=== PATIENT | female | born 1950 | race Caucasian/White ===

== ENCOUNTER 2020-04-13 10:48 | Outpatient (REF) | payer MEDICARE, SELFPAY ==
[2020-04-13 14:40] LABS: Estimated Average Glucose 123 mg/dL; Hemoglobin A1c % 5.9 %
[2020-04-13 14:43] LABS: Vitamin D 25-OH Total 35.6 ng/mL (>30)
[2020-04-13 14:44] LABS: Alanine Aminotransferase 19 U/L (0-31); Albumin Level 4.3 g/dL (3.5-5.0); Alkaline Phosphatase 63 U/L (39-117); Anion Gap 13 (12-20); Aspartate Amino Transferase 20 U/L (5-31); Bilirubin Total 0.6 mg/dL (0.0-1.0); Blood Urea Nitrogen 13 mg/dL (9-16); Calcium 8.8 mg/dL (8.4-10.2); Carbon Dioxide 31 mmol/L (22-29); Chloride 104 mmol/L (96-108); Cholesterol 141 mg/dL; Estimated Glomerular Filt Rate > 60; Glucose Fasting 107 mg/dL (60-99); HDL Cholesterol 51 mg/dL; LDL Cholesterol Calculated 69 mg/dl; Potassium 4.1 mmol/l (3.3-5.1); Sodium 144 mmol/L (135-145); Triglycerides 106 mg/dL
== END 2020-04-13 10:49 | disposition home or self-care (01) ==
LOC: HO.HMGCLDS 10:48
PROVIDERS: PCP Internal Medicine; Visit Provider Internal Medicine
DX: E11.9 Type 2 diabetes mellitus without complications (principal); E78.5 Hyperlipidemia, unspecified; I10 Essential (primary) hypertension; N39.46 Mixed incontinence; F41.8 Other specified anxiety disorders; Z78.0 Asymptomatic menopausal state
CPT/HCPCS: 36415; 80053; 80061; 82306; 83036

== ENCOUNTER 2020-08-04 10:25 | Outpatient (REF) | payer MEDICARE, SELFPAY ==
[2020-08-04 12:06] LABS: Estimated Average Glucose 123 mg/dL; Hemoglobin A1c % 5.9 %
[2020-08-04 12:46] LABS: Carbon Dioxide 31 mmol/L (22-29); Chloride 105 mmol/L (96-108); Potassium 4.5 mmol/L (3.3-5.1); Sodium 144 mmol/L (135-145)
[2020-08-04 12:47] LABS: Alanine Aminotransferase 16 U/L (0-31); Anion Gap 13 (12-20); Aspartate Amino Transferase 16 U/L (5-31); Blood Urea Nitrogen 15 mg/dL (9-16); Calcium 9.3 mg/dL (8.4-10.2); Cholesterol 133 mg/dL; Estimated Glomerular Filt Rate > 60; Glucose Fasting 109 mg/dL (60-99); HDL Cholesterol 45 mg/dL; LDL Cholesterol Calculated 63 mg/dl; Triglycerides 129 mg/dL
[2020-08-04 13:12] LABS: Vitamin D 25-OH Total 40.6 ng/mL (>30)
== END 2020-08-04 10:26 | disposition home or self-care (01) ==
LOC: HO.HMGCLDS 10:25
PROVIDERS: PCP Internal Medicine; Visit Provider Internal Medicine
DX: I10 Essential (primary) hypertension (principal); E78.5 Hyperlipidemia, unspecified; E11.9 Type 2 diabetes mellitus without complications
CPT/HCPCS: 36415; 80048; 80061; 82306; 83036; 84450; 84460

== ENCOUNTER 2020-10-22 14:28 | Outpatient (REF) | payer MEDICARE, SELFPAY ==
--- NOTE | ~2020-10-22 | MM_ITS ---
EXAMINATION: MM SCREENING DIGITAL BREAST TOMOSYNTHESIS, BILATERAL CLINICAL INFORMATION: Screening. Asymptomatic. The lifetime risk of breast cancer based on the Tyrer-Cuzick Model is 6%. COMPARISON: Mammography: 04/09/2019, 04/05/2018, 03/02/2017 TECHNIQUE: Digital breast tomosynthesis is performed in both the craniocaudal and mediolateral oblique views along with computer-aided detection (CAD). Synthesized 2D images are generated from the tomosynthesis. Additional exaggerated left CC view is provided. FINDINGS: There are scattered areas of fibroglandular density (ACR BI-RADS breast composition Category b). Breast tissue composition borders on heterogeneously dense in the outer quadrants. The left breast parenchymal pattern is similar to prior studies and there is no interval mass or developing density or architectural abnormality. There are scattered bilateral round and rim calcifications again seen. The skin contours are smooth. The right MLO view has asymmetric density mid depth along posterior nipple line without correlate on CC view. Suspect summation artifact or incompletely compressed glandular tissue. Patient will be recalled for additional imaging. MM/MM tomosynthesis screening BI IMPRESSION: 1. Right: Asymmetric density mid breast on MLO view near posterior nipple line. Suspect summation artifact. 2. Left: No mammographic evidence of malignancy. ASSESSMENT: BI-RADS 0: Incomplete - Need Additional Imaging Evaluation RECOMMENDATION: 1. Additional views of the right breast (3-D spot MLO, 3-D ML). 2. Targeted ultrasound if warranted after review of the additional views. 3. Radiology department staff will contact the patient for additional imaging. This patient's information was entered into a reminder system with a target due date for their next mammogram.
== END 2020-10-22 14:29 | disposition home or self-care (01) ==
LOC: HO.MAMMO 14:28
PROVIDERS: Visit Provider Internal Medicine
DX: Z12.31 Encounter for screening mammogram for malignant neoplasm of breast (principal)
CPT/HCPCS: 77063; 77067

== ENCOUNTER 2020-11-01 12:29 | Outpatient (REF) | payer MEDICARE, SELFPAY ==
--- NOTE | ~2020-11-01 | MM_ITS ---
EXAMINATION: MM DIAGNOSTIC DIGITAL BREAST TOMOSYNTHESIS, RIGHT CLINICAL INFORMATION: Recall from screening for questionable asymmetric density mid depth right MLO view near posterior nipple line without CT correlate. Summation artifact or incompletely compressed glandular tissue suspected. COMPARISON: Mammography: 10/22/2020, 04/09/2019, 04/05/2018 TECHNIQUE: Digital breast tomosynthesis is performed. 2D images are generated from the tomosynthesis. The following views are obtained: 3-D ML, 3-D spot MLO x2. FINDINGS: There are scattered areas of fibroglandular density (ACR BI-RADS breast composition Category b). The additional views show scattered fibroglandular densities similar to prior studies. There is no interval asymmetric density, developing density, mass, or architectural abnormality. Results are discussed with the patient at time of visit. MM/MM tomosynthesis added views R IMPRESSION: Additional views show no significant changes in the fibroglandular pattern compared with prior exams. ASSESSMENT: BI-RADS 2: Benign RECOMMENDATION: Routine annual mammography screening. This patient's information was entered into a reminder system with a target due date for their next mammogram.
== END 2020-11-01 12:30 | disposition home or self-care (01) ==
LOC: HO.MAMMO 12:29
PROVIDERS: Visit Provider Internal Medicine
DX: R92.2 Inconclusive mammogram (principal)
CPT/HCPCS: 77061; 77065

== ENCOUNTER 2021-12-07 13:18 | Outpatient (REF) | payer MEDICARE, SELFPAY ==
--- NOTE | ~2021-12-07 | MM_ITS ---
EXAMINATION: MM SCREENING DIGITAL BREAST TOMOSYNTHESIS, BILATERAL CLINICAL INFORMATION: Screening. Asymptomatic. The lifetime risk of breast cancer based on the Tyrer-Cuzick Model is 2%. COMPARISON: Mammography: 11/01/2020, 10/22/2020, 04/09/2019, 04/05/2018 TECHNIQUE: Digital breast tomosynthesis is performed in both the craniocaudal and mediolateral oblique views along with computer-aided detection (CAD). Synthesized 2D images are generated from the tomosynthesis. FINDINGS: There are scattered areas of fibroglandular density (ACR BI-RADS breast composition Category b). There are no significant masses, abnormal calcifications, or other abnormalities. Parenchymal pattern is similar to prior studies. There is no developing density or architectural abnormality. The axilla and skin contours are unremarkable. No significant changes. MM/MM tomosynthesis screening BI IMPRESSION: No mammographic evidence of malignancy. ASSESSMENT: BI-RADS 1: Negative RECOMMENDATION: Routine annual mammography screening. This patient's information was entered into a reminder system with a target due date for their next mammogram.
== END 2021-12-07 13:19 | disposition home or self-care (01) ==
LOC: HO.MAMMO 13:18
PROVIDERS: PCP Internal Medicine; Visit Provider Internal Medicine
DX: Z12.31 Encounter for screening mammogram for malignant neoplasm of breast (principal)
CPT/HCPCS: 77063; 77067

== ENCOUNTER 2022-01-11 11:13 | Outpatient (REF) | payer MEDICARE, SELFPAY ==
[2022-01-11 14:22] LABS: Alanine Aminotransferase 15 U/L (0-31); Anion Gap 14 (12-20); Aspartate Amino Transferase 22 U/L (5-31); Blood Urea Nitrogen 16 mg/dL (9-16); Carbon Dioxide 28 mmol/L (22-29); Chloride 106 mmol/L (96-108); Cholesterol 130 mg/dL; Estimated Glomerular Filt Rate > 60; Glucose Fasting 115 mg/dL (60-99); HDL Cholesterol 49 mg/dL; LDL Cholesterol Calculated 63 mg/dl; Potassium 4.1 mmol/L (3.3-5.1); Sodium 144 mmol/L (135-145); Triglycerides 90 mg/dL
[2022-01-11 14:45] LABS: Vitamin D 25-OH Total 49.6 ng/mL (>30)
== END 2022-01-11 11:14 | disposition home or self-care (01) ==
LOC: HO.HMGCLDS 11:13
PROVIDERS: PCP Internal Medicine; Visit Provider Internal Medicine
DX: E78.5 Hyperlipidemia, unspecified (principal); I10 Essential (primary) hypertension; E11.9 Type 2 diabetes mellitus without complications
CPT/HCPCS: 36415; 80048; 80061; 82306; 84450; 84460

== ENCOUNTER 2022-07-06 10:39 | Outpatient (REF) | payer MEDICARE, SELFPAY ==
[2022-07-06 14:48] LABS: Estimated Average Glucose 128 mg/dL; Hemoglobin A1c % 6.1 %
[2022-07-06 14:51] LABS: Alanine Aminotransferase 16 U/L (0-31); Anion Gap 15 (12-20); Aspartate Amino Transferase 19 U/L (5-31); Blood Urea Nitrogen 16 mg/dL (9-16); Calcium 9.1 mg/dL (8.4-10.2); Carbon Dioxide 27 mmol/L (22-29); Chloride 105 mmol/L (96-108); Cholesterol 129 mg/dL; Estimated Glomerular Filt Rate > 60; Glucose Fasting 130 mg/dL (60-99); HDL Cholesterol 42 mg/dL; LDL Cholesterol Calculated 67 mg/dl; Potassium 4.2 mmol/L (3.3-5.1); Sodium 143 mmol/L (135-145); Triglycerides 100 mg/dL
[2022-07-06 14:55] LABS: Vitamin D 25-OH Total 53.9 ng/mL (>30)
[2022-07-06 15:15] LABS: Creatinine Urine 69.38 mg/dL
== END 2022-07-06 10:40 | disposition home or self-care (01) ==
LOC: HO.HMGCLDS 10:39
PROVIDERS: PCP Internal Medicine; Visit Provider Internal Medicine
DX: E11.9 Type 2 diabetes mellitus without complications (principal); I10 Essential (primary) hypertension; M85.80 Other specified disorders of bone density and structure, unspecified site; E78.5 Hyperlipidemia, unspecified
CPT/HCPCS: 36415; 80048; 80061; 82043; 82306; 83036; 84450; 84460

== ENCOUNTER 2022-12-30 10:26 | Outpatient (REF) | payer MEDICARE, SELFPAY ==
--- NOTE | ~2022-12-30 | MM_ITS ---
EXAMINATION: MM SCREENING DIGITAL BREAST TOMOSYNTHESIS, BILATERAL CLINICAL INFORMATION: Screening. Asymptomatic. COMPARISON: Mammography: This study is compared with prior exams dating back to 2017. TECHNIQUE: Digital breast tomosynthesis is performed in both the craniocaudal and mediolateral oblique views along with computer-aided detection (CAD). Synthesized 2D images are generated from the tomosynthesis. FINDINGS: There are scattered areas of fibroglandular density (ACR BI-RADS breast composition Category b). There are no significant masses, abnormal calcifications, or other abnormalities. Bilateral benign calcifications are present. MM/MM tomosynthesis screening BI IMPRESSION: No mammographic evidence of malignancy. ASSESSMENT: BI-RADS BI-RADS 2 - Benign Findings RECOMMENDATION: Routine annual mammography screening. 1 year F/U This examination should not preclude the clinical evaluation of a suspicious palpable abnormality. This patient's information was entered into a reminder system with a target due date for their next mammogram.
== END 2022-12-30 10:27 | disposition home or self-care (01) ==
LOC: HO.MAMMO 10:26
PROVIDERS: PCP Internal Medicine; Visit Provider Internal Medicine
DX: Z12.31 Encounter for screening mammogram for malignant neoplasm of breast (principal)
CPT/HCPCS: 77063; 77067

== ENCOUNTER → 2022-12-30 10:30 | Outpatient (BNV) | payer MEDICARE, SELFPAY | PROVIDERS: PCP Internal Medicine; Visit Provider Radiology Diagnostic Radiology | DX: Z12.31 Encounter for screening mammogram for malignant neoplasm of breast (principal) | CPT/HCPCS: 77063; 77067 ==

== ENCOUNTER 2023-01-05 10:10 | Outpatient (REF) | payer MEDICARE, SELFPAY ==
[2023-01-05 14:04] LABS: Alanine Aminotransferase 19 U/L (0-31); Anion Gap 15 (12-20); Aspartate Amino Transferase 20 U/L (5-31); Blood Urea Nitrogen 13 mg/dL (9-16); Calcium 9.6 mg/dL (8.4-10.2); Carbon Dioxide 28 mmol/L (22-29); Chloride 103 mmol/L (96-108); Cholesterol 115 mg/dL (<200); Estimated Glomerular Filt Rate > 60; Glucose Fasting 126 mg/dL (60-99); HDL Cholesterol 45 mg/dL (>40); LDL Cholesterol Calculated 51 mg/dL (<100); Sodium 142 mmol/L (135-145); Triglycerides 97 mg/dL (<150)
[2023-01-05 14:11] LABS: Estimated Average Glucose 123 mg/dL; Hemoglobin A1c % 5.9 % (<6.0)
== END 2023-01-05 10:11 | disposition home or self-care (01) ==
LOC: HO.HMGCLDS 10:10
PROVIDERS: PCP Internal Medicine; Visit Provider Internal Medicine
DX: I10 Essential (primary) hypertension (principal); E78.5 Hyperlipidemia, unspecified; E11.9 Type 2 diabetes mellitus without complications; F41.8 Other specified anxiety disorders; L30.9 Dermatitis, unspecified
CPT/HCPCS: 36415; 80048; 80061; 83036; 84450; 84460

== ENCOUNTER 2023-01-11 13:32 | Outpatient (AMB) | payer MEDICARE, SELFPAY ==
[2023-01-11 13:50] VITALS: BP 135/84; PULSE 62; O2SAT 97; BMI 37.6
--- NOTE | 2023-01-11 13:50 | A.OFFPC_ITS ---
Vital Signs 01/11/23 13:50 Height 5 ft 1 in Weight 199 lb 2 oz BMI 37.6 BP 135/84 Blood Pressure Location Lt brachial Position Sitting Pulse 62 Pulse Source Pulse Oximeter Pulse Oximetry (%) 97 Oxygen Delivery Method Room Air Intake Visit Reasons: 6m follow up Intake Note: pt is here for a 6 month follow up for lab results pt will get flu vaccine at [facility] Allergies latex Allergy (Unknown, Verified 07/16/23 13:17) unknown Medication List - Last Reconciled 01/11/23 by Chloe Hutchison MD amlodipine 5 mg PO .QPM with supper atenolol 100 mg PO DAILY blood sugar diagnostic ([employer] Verio test strips) As directed: test once a day before breakfast or supper blood-glucose meter ([employer] Verio Meter) As directed calcium carbonate (Calcium) 600 mg PO DAILY clotrimazole-betamethasone 1-0.05 % 1 appl topical BID 10 days flu vacc [id number](65yr up)-PF mL IM fluoxetine 10 mg PO QAM hydroxyzine HCl 25 mg PO DAILY PRN lancets As directed: one day before breakfast or supper lisinopril 10 mg PO DAILY metformin 500 mg PO BID multivitamin 1 tab PO DAILY oxybutynin chloride ER 10 mg PO DAILY pneumoc 13-anil conj-dip cr(PF) 0.5 mL IM DIRECTED simvastatin 40 mg PO BEDTIME Tobacco use date assessed: 01/11/23 Fall risk assessment: No Falls in past year Last assessed Fall Risk: 01/11/23 Dental Screening Dental Screen Date: 01/11/23 Did you have a dental visit in the last 12 months?: No Did you have a dental problem in the last 6 months where you did not have access to dental care?: No Was dental information given to patient?: Patient has dentist HPI 6m follow up HPI Details 72 year-old lady here today for follow-u p on her hypertension, diabetes mellitus and dyslipidemia. She has been compliant with taking her medications, has been trying to follow recommended diet but admits to not getting any regular exercise. Has history of depression currently controlled on fluoxetine 10 mg daily PFS Medical History Osteopenia Breast cancer screening by mammogram Eczema of both hands Essential hypertension Depression with anxiety Mixed stress and urge urinary incontinence Essential hypertension Dyslipidemia Controlled diabetes mellitus type II without complication Surgical History Cataracts, bilateral History of eye surgery Family History Father Lung cancer HTN (hypertension) Diabetes mellitus Mother HTN (hypertension) Brother No problems noted. Sister No problems noted. Son No problems noted. Daughter No problems noted. Daughter No problems noted. Social History Housing: House Alcohol intake: current Patient Tobacco Use Status: Former Tobacco user e-Cigarette/Vaping Use: Never Used service: No Current occupational status: disabled Cognitive needs: No Hearing needs: No Vision needs: Yes Questionnaire Thrive Questionnaire Date Thrive assessed: 07/11/22 BIGG-7 AMB Questionnaire BIGG-7 Date BIGG - 7 assessed: 07/11/22 Source: Developed by Drs. Ángel Robles, Natalee Varghese, Aneudy Smith and colleagues, with an educational dejuan from [employer]. Review of Systems Const Denies body aches, Denies fatigue, Denies fever(s), Denies headache(s) and Denies weakness Eyes Details: 06/12/[address] De Knowles - no retinopathy ,[place] Denies change in vision, Denies eye discharge and Denies itchy eyes ENT Denies dizziness, Denies headache(s), Denies nasal congestion, Denies nasal discharge and Denies sore throat Card Denies chest pain, Denies lightheadedness, Denies palpitations and Denies dyspnea Resp Denies chest congestion, Denies cough, Denies dyspnea and Denies wheezing GI Denies abdominal pain, Denies change in bowel habits and Denies heartburn Denies urinary frequency, Denies dysuria and Denies urinary urgency Musc Reports no additional complaints Skin/Breast Denies lesions Neuro Denies dizziness, Denies headache(s) and Denies weakness Psych Reports no additional complaints Endo Denies fatigue, Denies polydipsia, Denies polyuria and Denies palpitations Apolinar/Lymph Denies easy bruising Aller/Immun Denies itchy eyes, Denies seasonal rhinorrhea and Denies wheezing Physical exam (Primary Care) Vital Signs: Last Vital Signs Pulse 62 01/11/23 13:50 BP 135/84 01/11/23 13:50 Pulse Ox 97 01/11/23 13:50 Oxygen Delivery Method Room Air 01/11/23 13:50 BMI result Body Mass Index 37.6 Tobacco/Smoking Status: Tobacco use Status Tobacco use date assessed 01/11/23 01/11/23 13:54 Patient Tobacco Use Status Former Tobacco user 01/11/23 13:54 e-Cigarette/Vaping Use Never Used 01/11/23 13:54 Thrive Assessment: Date of Thrive Assessment Date Thrive assessed 07/11/22 01/11/23 13:54 Const General: comfortable and no acute distress Nutritional Appearance: obese Orientation/consciousness: patient oriented x3 HENMT Ears: TM's normal bilaterally and EAC's normal General nose exam: Normal external nose present and No nasal discharge present Face and sinus: Yes face symmetric Mouth: Normal oral and palatal mucosa present and moist mucous membranes Eyes General: appearance normal, both eyes and all related structures Neck Neck: Yes full ROM, Yes no lymphadenopathy and Yes supple Thyroid: Thyroid normal Resp Auscultation: clear to auscultation bilaterally Cardio Rate: regular rate Rhythm: regular rhythm Heart sounds: S1 normal heart sound present and S2 normal heart sound present GI Palpation (GI): Soft to palpation, nontender and no guarding Auscultation: normal bowel sounds Skin General skin exam: no rashes or lesions noted Neuro General: patient oriented x3, gait normal, moves all extremities, Normal light touch and pain sensation, no focal motor deficits and CN's II-XI intact bilaterally Extrem General: Yes full ROM, Yes no joint enlargement, Yes no pedal edema and Yes norm al gait Psych Appearance: grossly normal Mental Status: mental status grossly normal Speech and movement: Normal speech and movement present Affect: normal affect Results Reviewed Results Reviewed: ENTERED: 01/05/23-1016 JOSE MANUEL SIMS: ORDERED: Met Prof Fast, AST, ALT, Lipid Panel Test Result Flag Reference Site Sodium 142 135-145 mmol/L Potassium 4.0 3.3-5.1 mmol/L CL 103 96-108 mmol/L CO2 28 22-29 mmol/L Gap 15 12-20 BUN 13 9-16 mg/dL Creat 0.75 0.5-1.4 mg/dL EGFR > 60 NOTE: For -Beninese individuals, multiply the result by 1.210. Chronic Kidney Disease: Estimated GFR < 60 mL/min/1.73m2 Severe Kidney Disease: Estimated GFR < 15 mL/min/1.73m2 FBS 126 H 60-99 mg/dL A fasting glucose of 126 mg/dl or greater on more than one occasion is considered diagnostic of diabetes. CA 9.6 8.4-10.2 mg/dL AST (GOT) 20 5-31 U/L ALT (GPT) 19 0-31 U/L Triglyceride 97 <150 mg/dL Desirable Triglyceride: less than 150 mg/dL Borderline High Triglyceride 150-199 mg/dL High Triglyceride: 200-499 mg/dL Very High Triglyceride: greater than or equal to 5OO mg/dL Cholesterol 115 <200 mg/dL Desirable Cholesterol: less than 200 mg/dL Borderline High Cholesterol: 200-239 mg/dL High Cholesterol: greater than 239 mg/dL LDL Calculated 51 <100 mg/dL Desirable LDL: less than 100 mg/dL Near Optimal/Above Optimal LDL: 110-129 mg/dL Borderline High LDL: 130-159 mg/dL High LDL: 160-189 mg/dL Very High LDL: greater than or equal to 190 mg/dL HDL 45 >40 mg/dL Desirable HDL: greater than 40 mg/dL Laboratory Tests 01/05/23 10:20 Estimat Average Glucose 123 Hemoglobin A1c % 5.9 Assessment and Plan Assessment & Plan (1) Essential hypertension: Code(s): I10 - Essential (primary) hypertension Plan: Blood pressure stable and controlled on lisinopril 10 mg daily, will continue with present treatment (2) Dyslipidemia: Code(s): E78.5 - Hyperlipidemia, unspecified Plan: Recent fasting labs showed lipids within normal limits, continued on simvastatin 40 mg at bedtime, in addition to adherence to a low-cholesterol diet and regular exercise (3) Controlled diabetes mellitus type II without complication: Code(s): E11.9 - Type 2 diabetes mellitus without complications Qualifiers: Diabetes mellitus [facility] insulin use: without bed bug exterminator use Qualified Code(s): E11.9 - Type 2 diabetes mellitus without complications Plan: Recent lab results reviewed with patient, with sugar and hemoglobin A1c stable and at goal. Continue metformin 500 mg taken 1 tablet twice a day, continue to check fasting blood sugar at home, maintain log and bring to next appointment for review. Reinforced diabetic diet and regular exercise with patient. Up-to-date with her yearly diabetes retinopathy screening, seen by Dr. Knowles 06/05/2022 with no retinopathy seen in both eye. Patient advised to inspect feet daily, for any signs of injury, callus or infection. Compliance with diet and regular exercise again stressed. Blood pressure goal is less than 130/80, goal LDL is less than 100 and goal hemoglobin A1c is less than 7% follow-up appointment made in--6-months, after fasting labs done. (4) Depression with anxiety: Code(s): F41.8 - Other specified anxiety disorders Plan: Stable and controlled on fluoxetine 10 mg daily in a.m. Coding Level of Care Code Est Pt Level 4 (55911) Complex EM visit Add On G2211 Diagnoses Essential hypertension I10 Dyslipidemia E78.5 Controlled type 2 diabetes mellitus without complication, without long-term current use of insulin E11.9 Diabetes mellitus bed bug exterminator insulin use: without bed bug exterminator use Depression with anxiety F41.8
== END 2023-01-11 14:53 | disposition home or self-care (01) ==
PROVIDERS: Visit Provider Internal Medicine
DX: I10 Essential (primary) hypertension (principal); E78.5 Hyperlipidemia, unspecified; E11.9 Type 2 diabetes mellitus without complications; F41.8 Other specified anxiety disorders
CPT/HCPCS: 99499

== ENCOUNTER 2023-07-13 11:25 | Outpatient (REF) | payer MEDICARE, SELFPAY ==
[2023-07-13 13:52] LABS: Estimated Average Glucose 126 mg/dL
[2023-07-13 14:18] LABS: Alanine Aminotransferase 13 U/L (0-31); Anion Gap 12 (12-20); Aspartate Amino Transferase 16 U/L (5-31); Blood Urea Nitrogen 12 mg/dL (9-16); Calcium 9.2 mg/dL (8.4-10.2); Carbon Dioxide 32 mmol/L (22-29); Chloride 104 mmol/L (96-108); Cholesterol 134 mg/dL (<200); Estimated Glomerular Filt Rate > 60; Glucose Fasting 128 mg/dL (60-99); HDL Cholesterol 45 mg/dL (>40); LDL Cholesterol Calculated 64 mg/dL (<100); Potassium 3.9 mmol/L (3.3-5.1); Sodium 144 mmol/L (135-145); Triglycerides 125 mg/dL (<150)
[2023-07-13 14:23] LABS: Vitamin D 25-OH Total 44.4 ng/mL (>30)
[2023-07-13 14:40] LABS: Creatinine Urine 63.78 mg/dL; Microalbum/Creatinine Ratio Ur 31.3 ug/mg cr (<30)
== END 2023-07-13 11:26 | disposition home or self-care (01) ==
LOC: HO.HMGCLDS 11:25
PROVIDERS: PCP Internal Medicine; Visit Provider Internal Medicine
DX: M85.80 Other specified disorders of bone density and structure, unspecified site (principal); I10 Essential (primary) hypertension; E78.5 Hyperlipidemia, unspecified; E11.9 Type 2 diabetes mellitus without complications
CPT/HCPCS: 36415; 80048; 80061; 82043; 82306; 82570; 83036; 84450; 84460

== ENCOUNTER 2023-07-16 12:54 | Outpatient (AMB) | payer MEDICARE, SELFPAY ==
[2023-07-16 12:58] VITALS: BP 132/80; PULSE 62; O2SAT 97
--- NOTE | 2023-07-16 12:58 | A.OFFPC_ITS ---
Vital Signs 07/16/23 12:58 Height 5 ft 1 in BMI Reason not done Patient refused/unable BP 132/80 Blood Pressure Location Rt brachial Position Sitting Pulse 62 Pulse Source Pulse Oximeter Pulse Oximetry (%) 97 Oxygen Delivery Method Room Air Intake Visit Reasons: 6 month fu - see comments Intake Note: pt is here for 6 month follow up Plate Washer Required: No Allergies latex Allergy (Unknown, Verified 07/16/23 13:17) unknown Medication List - Last Reconciled 07/16/23 by KANCHAN Hernandez amlodipine 5 mg PO .QPM with supper atenolol 100 mg PO DAILY blood sugar diagnostic ([employer] Verio test strips) As directed: test once a day before breakfast or supper blood-glucose meter ([employer] Verio Meter) As directed calcium carbonate (Calcium 600) 600 mg PO DAILY clotrimazole-betamethasone 1-0.05 % 1 appl topical BID 10 days fluoxetine 10 mg PO QAM hydroxyzine HCl 25 mg PO DAILY PRN lancets As directed: one day before breakfast or supper lisinopril 10 mg PO DAILY metformin 500 mg PO BID multivitamin 1 tab PO DAILY oxybutynin chloride ER 10 mg PO DAILY simvastatin 40 mg PO BEDTIME Tobacco use date assessed: 07/16/23 Fall risk assessment: 2 + Falls in past year Last assessed Fall Risk: 07/16/23 Dental Screening Dental Screen Date: 07/16/23 Did you have a dental visit in the last 12 months?: No Did you have a dental problem in the last 6 months where you did not have access to dental care?: No Was dental information given to patient?: Patient has dentist HPI HPI Comments History of Present Illness Details Patient is a 72-year-old female in for a diabetic follow-up. Patient's most recent A1c was 6.0. She states that her sugars have been slightly elevated over the past 6 months as she recently lost her and daughter and has been stress eating. Patient would like to lower blood sugar values with improved diet and exercise. Patient denies complaints of polyuria or polydipsia. Patient declines podiatry at this time. She does report intermittent right calf pain. She states this pain often occurs at night, feels like she needs to massage the pain now with her hands. She states that the pain occurs with more frequency over the past month. Denies using medication for relief. PFSH Medical History (Updated 07/16/23 @ 13:50 by KANCHAN Hernandez) Osteopenia Breast cancer screening by mammogram Eczema of both hands Essential hypertension Depression with anxiety Mixed stress and urge urinary incontinence Essential hypertension Dyslipidemia Controlled diabetes mellitus type II without complication Surgical History Cataracts, bilateral History of eye surgery Family History Father Lung cancer HTN (hypertension) Diabetes mellitus Mother HTN (hypertension) Brother No problems noted. Sister No problems noted. Son No problems noted. Daughter No problems noted. Daughter No problems noted. Social History Housing: House Alcohol intake: current Patient Tobacco Use Status: Former Tobacco user e-Cigarette/Vaping Use: Never Used service: No Current occupational status: disabled Cognitive needs: No Hearing needs: No Vision needs: Yes Questionnaire Thrive Questionnaire Date Thrive assessed: 07/11/22 BIGG-7 AMB Questionnaire BIGG-7 Date BIGG - 7 assessed: 07/11/22 Source: Developed by Drs. Ángel Robles, Natalee Varghese, Aneudy Smith and colleagues, with an educational dejuan from [employer]. Review of Systems Const All systems reviewed & are unremarkable except as noted in HPI and below Denies headache(s) ENT Denies dizziness and Denies headache(s) Card Denies chest pain and Denies dyspnea Resp Denies dyspnea Musc Reports other (right calf pain.) Neuro Denies dizziness, Denies headache(s) and Denies paresthesias Psych Denies homicidal ideation and Denies suicidal ideation Physical exam (Primary Care) Vital Signs: Last Vital Signs Pulse 62 07/16/23 12:58 BP 132/80 07/16/23 12:58 Pulse Ox 97 07/16/23 12:58 Oxygen Delivery Method Room Air 07/16/23 12:58 Care Plan Goal for BP management: Vital signs reviewed and stable. Tobacco/Smoking Status: Tobacco use Status Tobacco use date assessed 07/16/23 07/16/23 13:05 Patient Tobacco Use Status Former Tobacco user 07/16/23 12:58 e-Cigarette/Vaping Use Never Used 07/16/23 12:58 Thrive Assessment: Date of Thrive Assessment Date Thrive assessed 07/11/22 07/16/23 12:58 Const Other: Appearance: Alert.? Oriented X3.? No acute distress.? Neck: Normal inspection.? Neck supple.? CVS: Normal heart rate and rhythm.? Pulses normal.? Respiratory: No respiratory distress.? Breath sounds normal.? Skin: Skin warm and dry.? Normal skin color.? Normal skin turgor.? Extremities: No lower extremity edema.? + point tenderness to mid calf right side. Neuro: Oriented X 3.? No motor deficit.? No sensory deficit. CN 2-12 intact Results Reviewed Results Reviewed: Sodium 144 135-145 mmol/L Potassium 3.9 3.3-5.1 mmol/L CL 104 96-108 mmol/L CO2 32 H 22-29 mmol/L Gap 12 12-20 BUN 12 9-16 mg/dL Creat 0.67 0.5-1.4 mg/dL EGFR > 60 NOTE: For -[place] individuals, multiply the result by 1.210. Chronic Kidney Disease: Estimated GFR < 60 mL/min/1.73m2 Severe Kidney Disease: Estimated GFR < 15 mL/min/1.73m2 FBS 128 H 60-99 mg/dL A fasting glucose of 126 mg/dl or greater on more than one occasion is considered diagnostic of diabetes. CA 9.2 8.4-10.2 mg/dL AST (GOT) 16 5-31 U/L ALT (GPT) 13 0-31 U/L Triglyceride 125 <150 mg/dL Desirable Triglyceride: less than 150 mg/dL Borderline High Triglyceride 150-199 mg/dL High Triglyceride: 200-499 mg/dL Very High Triglyceride: greater than or equal to 5OO mg/dL Cholesterol 134 <200 mg/dL Desirable Cholesterol: less than 200 mg/dL Borderline High Cholesterol: 200-239 mg/dL High Cholesterol: greater than 239 mg/dL LDL Calculated 64 <100 mg/dL Desirable LDL: less than 100 mg/dL Near Optimal/Above Optimal LDL: 110-129 mg/dL Borderline High LDL: 130-159 mg/dL High LDL: 160-189 mg/dL Very High LDL: greater than or equal to 190 mg/dL HDL 45 >40 mg/dL Desirable HDL: greater than 40 mg/dL Note: This HDL assay may give artificially low results in patients with liver disease. Vit D 25-OH Tot 44.4 >30 ng/mL Health Based Reference Values* < 20 ng/mL Deficient 20-30 ng/mL Insufficient > 30 ng/mL Sufficient *Colette HENDERSON. N Engl J Med. 2007;[id number] Care must be taken in interpreting Vitamin D results from different laboratories and methodologies. Published data demonstrated that results from patients undergoing hemodialysis may show a negative bias when tested with various automated 25-OH vitamin D assays when compared to LC-MS/MS. When testing samples from patients whose predominant form of Vitamin D is Vitamin D2, such as patients receiving Vitamin D2 supplementation, results that are subtherapeutic should be confirmed with another method such as LC-MS/MS. Assessment and Plan Assessment & Plan (1) Right calf pain: Comment: Will order Ultrasound. Code(s): M79.661 - Pain in right lower leg (2) Controlled diabetes mellitus type II without complication: Comment: Patient will continue with current diabetic regimen. Patient will continue take blood sugar measurements at home. Patient will intervene with improved diet and exercise. Code(s): E11.9 - Type 2 diabetes mellitus without complications Qualifiers: Diabetes mellitus extermination supervisor insulin use: without extermination supervisor use Qualified Code(s): E11.9 - Type 2 diabetes mellitus without complications Plan: Take your medications as prescribed. If you were prescribed antibiotics today, it is important that you take your medication to their entirety, do not skip any doses, do not finish them early. Follow-up with your primary care provider this week. Return to the emergency department with new or worsening symptoms. Such as fevers, chills, chest pain, shortness of breath, nausea, vomiting, dizziness, headache, vision changes, lethargy In case of emergency call 911 Plan Follow up in 4 months. Orders: Orders US venous duplex LE RT Today M79.661 - Pain in right lower leg Coding Level of Care Code Est Pt Level 3 (67858) Diagnoses Right calf pain M79.661 Controlled type 2 diabetes mellitus without complication, without long-term current use of insulin E11.9 Diabetes mellitus extermination supervisor insulin use: without halfway use Time Spent (min) 25
== END 2023-07-16 14:33 | disposition home or self-care (01) ==
PROVIDERS: PCP Internal Medicine; Visit Provider Nurse Practitioner Primary Care
DX: M79.661 Pain in right lower leg (principal); E11.9 Type 2 diabetes mellitus without complications
CPT/HCPCS: 99213

== ENCOUNTER 2023-07-16 13:46 | Outpatient (REF) | payer MEDICARE, SELFPAY ==
--- NOTE | ~2023-07-16 | US_ITS ---
EXAMINATION: US VENOUS ULTRASOUND WITH DOPPLER LOWER EXTREMITY, RIGHT CLINICAL INFORMATION: Pain in right lower leg COMPARISON: None available. TECHNIQUE: Ultrasound of the deep veins is performed from the hip to the calf with compression sonography and color and pulse Doppler assessment. Spectral analysis with color-flow imaging is performed. FINDINGS: There is normal venous compression and respiratory variation. The visualized common femoral vein, superficial femoral vein, profunda femoral vein, popliteal vein, and the mid calf posterior tibial and peroneal veins show no evidence of deep venous thrombosis. US/US venous duplex LE RT IMPRESSION: No DVT demonstrated in the right lower extremity.
== END 2023-07-16 13:47 | disposition home or self-care (01) ==
LOC: HO.HMGCX 13:46
PROVIDERS: PCP Internal Medicine; Visit Provider Nurse Practitioner Primary Care
DX: M79.661 Pain in right lower leg (principal)
CPT/HCPCS: 93971

== ENCOUNTER 2023-12-19 13:07 | Outpatient (AMB) | payer MEDICARE, SELFPAY ==
[2023-12-19 13:11] VITALS: BP 110/70; PULSE 53; O2SAT 97; BMI 36.8
--- NOTE | 2023-12-19 13:11 | MHC.PC.OV ---
Vital Signs 12/19/23 13:11 Height 5 ft 1 in Weight 195 lb BMI 36.8 BP 110/70 Blood Pressure Location Rt brachial Position Sitting Pulse 53 Pulse Source Pulse Oximeter Pulse Oximetry (%) 97 Oxygen Delivery Method Room Air Intake Visit Reasons: 6 months follow up - see comments Intake Note: Pt is here today for her 6m0. f/u Allergies latex Allergy (Unknown, Verified 12/19/23 13:45) unknown Medication List - Last Reconciled 12/19/23 by Chloe Hutchison MD amlodipine 5 mg PO .QPM with supper atenolol 100 mg PO DAILY blood sugar diagnostic ([employer] Verio test strips) As directed: test once a day before breakfast or supper blood-glucose meter ([employer] Verio Meter) As directed calcium carbonate (Calcium 600) 600 mg PO DAILY clotrimazole-betamethasone 1-0.05 % 1 appl topical BID 10 days fluoxetine 10 mg PO QAM hydroxyzine HCl 25 mg PO DAILY PRN lancets As directed: one day before breakfast or supper lisinopril 10 mg PO DAILY metformin 500 mg PO BID multivitamin 1 tab PO DAILY oxybutynin chloride ER 10 mg PO DAILY simvastatin 40 mg PO BEDTIME Tobacco use date assessed: 12/19/23 Fall risk assessment: 2 + Falls in past year Last assessed Fall Risk: 12/19/23 Dental Screening Dental Screen Date: 12/19/23 Did you have a dental visit in the last 12 months?: Yes Did you have a dental problem in the last 6 months where you did not have access to dental care?: Yes Was dental information given to patient?: Patient has dentist HPI 6 months follow up - see comments HPI Details 73 year-old lady here today for follow-up on her hypertension, diabetes mellitus and dyslipidemia. She has been compliant with taking her medications, has been trying to follow recommended diet and walks for regular exercise. Feels well, with no complaints at present time [facility] Medical History Osteopenia Breast cancer screening by mammogram Eczema of both hands Essential hypertension Depression with anxiety Mixed stress and urge urinary incontinence Essential hypertension Dyslipidemia Controlled diabetes mellitus type II without complication Surgical History Cataracts, bilateral History of eye surgery Family History Father Lung cancer HTN (hypertension) Diabetes mellitus Mother HTN (hypertension) Brother No problems noted. Sister No problems noted. Son No problems noted. Daughter No problems noted. Daughter No problems noted. Social History Housing: House Alcohol intake: current Patient Tobacco Use Status: Former Tobacco user e-Cigarette/Vaping Use: Never Used service: No Current occupational status: disabled Cognitive needs: No Hearing needs: No Vision needs: Yes Questionnaire PHQ-9 Over the last 2 weeks, how often have you been bothered by any of the following problems? Depression Screening Interpretation: Negative Depression Screening Done: Yes 73943 - PHQ-9 Billing: Patient declined-do not bill Source: Developed by Drs. Ángel Robles, Natalee Varghese, Aneudy Smith and colleagues, with an educational dejuan from [employer]. Thrive Questionnaire Date Thrive assessed: 12/19/23 What is your living situation today?: I choose not to answer this question Within the past 12 months, did the food you bought not last and you didn't have the money to get more?: I choose not to answer this question Within the past 12 months, did you worry whether your food would run out before you got money to buy more?: I choose not to answer this question Do you have trouble paying for medicines?: I choose not to answer this question Do you have trouble getting transportation to medical appointments?: I choose not to answer this question Do you have trouble paying your heating and electricity bill?: I choose not to answer this question Do you have trouble taking care of your child, family member or friend?: I choose not to answer this question Do you have trouble with day-to-day activities such as bathing, preparing meals, shopping, managing finances, etc.?: I choose not to answer this question Are you currently unemployed and looking for a job?: I choose not to answer this question Are you interested in more education?: I choose not to answer this question THRIVE Score: 0 BIGG-7 AMB Questionnaire BIGG-7 Date BIGG - 7 assessed: 12/19/23 Source: Developed by Drs. Ángel Robles, Natalee Varghese, Aneudy Smith and colleagues, with an educational dejuan from [employer]. BIGG-7 Assessment Billing BIGG-7 Assessment Tool: pt declined-do not bill Review of Systems Const Denies body aches, Denies fatigue, Denies fever(s), Denies headache(s) and Denies weakness Eyes Details: ff'd by Dr De Knowles - no retinopathy ,OU Denies change in vision, Denies eye discharge and Denies itchy eyes ENT Denies dizziness, Denies headache(s), Denies nasal congestion, Denies nasal discharge and Denies sore throat Card Denies chest pain, Denies lightheadedness, Denies palpitations and Denies dyspnea Resp Denies chest congestion, Denies cough, Denies dyspnea and Denies wheezing GI Denies abdominal pain, Denies change in bowel habits and Denies heartburn Denies urinary frequency, Denies dysuria and Denies urinary urgency Musc Reports no additional complaints Skin/Breast Denies lesions Neuro Denies dizziness, Denies headache(s) and Denies weakness Psych Reports no additional complaints Endo Denies fatigue, Denies polydipsia, Denies polyuria and Denies palpitations Apolinar/Lymph Denies easy bruising Aller/Immun Denies itchy eyes, Denies seasonal rhinorrhea and Denies wheezing Physical exam (Primary Care) Vital Signs: Last Vital Signs Pulse 53 12/19/23 13:11 BP 110/70 12/19/23 13:11 Pulse Ox 97 12/19/23 13:11 Oxygen Delivery Method Room Air 12/19/23 13:11 Care Plan Goal for BP management: Vital signs reviewed and stable. BMI result Body Mass Index 36.8 Tobacco/Smoking Status: Tobacco use Status Tobacco use date assessed 12/19/23 12/19/23 13:20 Patient Tobacco Use Status Former Tobacco user 12/19/23 13:13 e-Cigarette/Vaping Use Never Used 12/19/23 13:13 Depression Screening Interpretation: Negative Thrive Assessment: Date of Thrive Assessment Date Thrive assessed 12/19/23 12/19/23 13:30 Const General: comfortable and no acute distress Nutritional Appearance: obese Orientation/consciousness: patient oriented x3 HENMT Head: Yes atraumatic Ears: hearing grossly normal bilaterally, TM's normal bilaterally and EAC's normal General nose exam: Normal external nose present and No nasal discharge present Face and sinus: Yes face symmetric Mouth: Normal oral and palatal mucosa present and moist mucous membranes Eyes General: appearance normal, both eyes and all related structures Neck Neck: Yes full ROM, Yes no lymphadenopathy and Yes supple Thyroid: Thyroid normal Resp Auscultation: clear to auscultation bilaterally Cardio Rate: regular rate Rhythm: regular rhythm Heart sounds: S1 normal heart sound present and S2 normal heart sound present GI Palpation (GI): Soft to palpation, nontender and no guarding Auscultation: normal bowel sounds Neuro General: patient oriented x3, gait normal, moves all extremities, Normal light touch and pain sensation, no focal motor deficits and CN's II-XI intact bilaterally Extrem General: Yes full ROM, Yes no joint enlargement, Yes no pedal edema and Yes normal gait Psych Appearance: grossly normal Mental Status: mental status grossly normal Speech and movement: Normal speech and movement present Affect: normal affect Results AMB Hemoglobin A1c AMB Hemoglobin A1c 6.2 % Last Edit by Anisa Garcia CMA on 12/19/23 13:34 Results Reviewed Results Reviewed: Laboratory Last Values Hgb A1c (Clinic) 6.2 % (4.0-6.0) H 12/19/23 13:30 Coding Level of Care Code Est Pt Level 4 (82934) Complex EM visit Add On G2211 Diagnoses Controlled type 2 diabetes mellitus without complication, without long-term current use of insulin E11.9 Diabetes mellitus security attendant insulin use: without security attendant use Dyslipidemia E78.5 Essential hypertension I10 Osteopenia of multiple sites M85.89 Osteopenia location: multiple sites Eczema of both hands L30.9 Assessment & Plan Assessment & Plan (1) Controlled diabetes mellitus type II without complication: Code(s): E11.9 - Type 2 diabetes mellitus without complications Category: Medical Qualifiers: Diabetes mellitus security attendant insulin use: without security attendant use Qualified Code(s): E11.9 - Type 2 diabetes mellitus without complications Plan: Continue with metformin 500 mg 1 tablet twice a day, with latest hemoglobin A1c now at 6.2%. Continue staying active, get regular exercise and reinforced importance of following recommended diet. Sees Dr. Knowles for her routine eye exam and diabetes retinopathy screening. (2) Dyslipidemia: Code(s): E78.5 - Hyperlipidemia, unspecified Category: Medical Plan: Ordered a fasting lipid panel, currently on simvastatin 40 mg at bedtime (3) Essential hypertension: Code(s): I10 - Essential (primary) hypertension Category: Medical Plan: Blood pressure at goal of less than 130/80. Continue with lisinopril 10 mg daily, atenolol 100 mg once a day, and amlodipine 5 mg daily. Reinforced importance of following a low sodium diet, getting regular exercise, and lowering stress levels. (4) Osteopenia: Comment: dexa scan 03/2019 Code(s): M85.80 - Other specified disorders of bone density and structure, unspecified site Category: Medical Qualifiers: Osteopenia location: multiple sites Qualified Code(s): M85.89 - Other specified disorders of bone density and structure, multiple sites Plan: Ordered a another DEXA scan, continue with taking adequate calcium from dietary sources, vitamin-D 3 supplements at least 2000 units daily (5) Eczema of both hands: Code(s): L30.9 - Dermatitis, unspecified Category: Medical Plan: Refill sent for clotrimazole-betamethasone cream to be applied to affected areas sparingly for once a day for no more than 10 days at a time. Orders: Orders Aspartate Amino Transferase 12/19/23 E11.9 - Type 2 diabetes mellitus without complications, E78.5 - Hyperlipidemia, unspecified, I10 - Essential (primary) hypertension, M85.80 - Other specified disorders of bone density and structure, unspecified site Basic Metabolic Panel Fasting 12/19/23 E11.9 - Type 2 diabetes mellitus without complications, E78.5 - Hyperlipidemia, unspecified, I10 - Essential (primary) hypertension, M85.80 - Other specified disorders of bone density and structure, unspecified site Vitamin D 25-OH Total 12/19/23 E11.9 - Type 2 diabetes mellitus without complications, E78.5 - Hyperlipidemia, unspecified, I10 - Essential (primary) hypertension, M85.80 - Other specified disorders of bone density and structure, unspecified site XR DEXA axial skeleton 12/19/23 M85.80 - Other specified disorders of bone density and structure, unspecified site AMB Hemoglobin A1c 12/19/23 Z13.9 - Encounter for screening, unspecified Alanine Aminotransferase 12/19/23 E11.9 - Type 2 diabetes mellitus without complications, E78.5 - Hyperlipidemia, unspecified, I10 - Essential (primary) hypertension, M85.80 - Other specified disorders of bone density and structure, unspecified site Microalbumin, Random (w Creat) 12/19/23 E11.9 - Type 2 diabetes mellitus without complications, E78.5 - Hyperlipidemia, unspecified, I10 - Essential (primary) hypertension, M85.80 - Other specified disorders of bone density and structure, unspecified site Lipid Panel 12/19/23 E11.9 - Type 2 diabetes mellitus without complications, E78.5 - Hyperlipidemia, unspecified, I10 - Essential (primary) hypertension, M85.80 - Other specified disorders of bone density and structure, unspecified site Medications: Refilled clotrimazole-betamethasone 1-0.05 % 1 appl topical BID 45 grams 0RF 10 days
== END 2023-12-19 14:47 | disposition home or self-care (01) ==
PROVIDERS: PCP Internal Medicine; Visit Provider Internal Medicine
DX: E11.620 Type 2 diabetes mellitus with diabetic dermatitis (principal); E78.5 Hyperlipidemia, unspecified; I10 Essential (primary) hypertension; L30.9 Dermatitis, unspecified; M85.89 Other specified disorders of bone density and structure, multiple sites

== ENCOUNTER → 2023-12-19 13:07 | Outpatient (BNVA) | payer MEDICARE, SELFPAY | PROVIDERS: PCP Internal Medicine; Visit Provider Internal Medicine | DX: E11.9 Type 2 diabetes mellitus without complications (principal); E78.5 Hyperlipidemia, unspecified; I10 Essential (primary) hypertension; M85.89 Other specified disorders of bone density and structure, multiple sites; L30.9 Dermatitis, unspecified | CPT/HCPCS: 83036; 99212 ==

== ENCOUNTER 2024-03-04 13:25 | Outpatient (REF) | payer MEDICARE, SELFPAY ==
--- NOTE | ~2024-03-04 | MM_ITS ---
EXAMINATION: BONE DENSITOMETRY CLINICAL INDICATION: Osteopenia. COMPARISON: Previous BD dated 04/09/2019 and baseline BD dated 01/31/2008. TECHNIQUE: Using a boarding pass DXA System (software version: 13.1) manufactured by [employer], dual-energy x-ray absorptiometry was performed of the lumbar spine and left hip. The images are of good technical quality. Summary results are attached. FINDINGS: LEFT FEMUR, NECK: Current: BMD 1.009 g/cm2, Z-score 1.6, T-score -0.2, normal. Prior: BMD 0.809 g/cm2. Baseline: BMD 0.897 g/cm2. LEFT FEMUR, TOTAL: Current: BMD 0.860 g/cm2, Z-score 0.4, T-score -1.2, osteopenia, 2.5% increase from previous, 7.4% decrease from baseline (<5% change is not significant). Prior: BMD 0.839 g/cm2. Baseline: BMD 0.929 g/cm2. AP SPINE L1-L4: Current: BMD 1.256 g/cm2, Z-score 2.2, T-score 0.6, normal, 5.1% increase from previous, 11.2% increase from baseline (<5% change is not significant). Prior: BMD 1.195 g/cm2. Baseline: BMD 1.130 g/cm2. IDENTIFIED RISK FACTORS: Menopause. HISTORY OF FRACTURE: None listed. MEDICATIONS: Calcium. MM/XR DEXA axial skeleton IMPRESSION: 1. DIAGNOSIS: Osteopenia based on the lowest T-score value of -1.2 in the total femur applying World Health Organization criteria. 2. 10-YEAR FRACTURE RISK PREDICTION, FRAX: Major osteoporotic fracture (clinical spine, forearm, hip or shoulder) 7.8%. Hip fracture 0.8%. 3. Treatment Recommendations: NOF guidelines recommend consideration for treatment in postmenopausal women and men age 50 and older presenting with the following: -A hip or vertebral (clinical or morphometric) fracture. -T-score less than or equal to -2.5 at the femoral neck or spine after appropriate evaluation to exclude secondary causes. -Low bone mass at the hip or spine and a 10-year fracture probability by FRAX of greater than or equal to 3% for hip fracture or greater than or equal to 20% for major osteoporotic fracture based on the [place] adapted WHO algorithm. 4. Other Recommendations: All treatment decisions require clinical judgment and consideration of individual patient factors, including patient preferences, comorbidities, previous drug use, risk factors not captured in the FRAX model (e.g. frailty, falls, vitamin D deficiency, increased bone turnover, interval significant decline in bone density) and possible under or overestimation of fracture risk by FRAX. Additional medical evaluation for secondary cause of low bone mineral density may be appropriate. FUTURE SCAN RECOMMENDATION: People with diagnosed cases of osteoporosis or at high risk for fracture should have regular bone mineral density tests. For patients eligible for Medicare, routine testing is allowed once every 2 years. The testing frequency can be increased to one year for patients who have rapidly progressing disease, those who are receiving or discontinuing medical therapy to restore bone mass, or have additional risk factors. Electronically signed by: Terrence Feliz MD 03/04/2024 04:58 PM JAMES
== END 2024-03-04 13:26 | disposition home or self-care (01) ==
LOC: HO.MAMMO 13:25
PROVIDERS: PCP Internal Medicine; Visit Provider Internal Medicine
DX: Z12.31 Encounter for screening mammogram for malignant neoplasm of breast (principal); M85.852 Other specified disorders of bone density and structure, left thigh
CPT/HCPCS: 77063; 77067; 77080

== ENCOUNTER → 2024-03-04 15:00 | Outpatient (BNV) | payer MEDICARE, SELFPAY | PROVIDERS: PCP Internal Medicine; Visit Provider Internal Medicine | DX: Z12.31 Encounter for screening mammogram for malignant neoplasm of breast (principal) | CPT/HCPCS: 77063; 77067 ==

== ENCOUNTER 2024-10-03 10:55 | Outpatient (REF) | payer MEDICARE, SELFPAY ==
--- OUTSIDE RECORDS SUMMARY | 2024-10-03 11:29 | XMS_ITS | Patient Health Record ---
Author Organization [facility] Address [address] [facility] [facility] [address] [place] [id number] Care Team Providers Care Air Tool Operator Name Role Phone Ángel Schrader [phone] Reason For Referral No Information Plan Of Treatment No Information
[2024-10-03 13:31] LABS: Alanine Aminotransferase 24 U/L (0-31); Anion Gap 11 (12-20); Aspartate Amino Transferase 27 U/L (5-31); Blood Urea Nitrogen 17 mg/dL (9-16); Calcium 9.4 mg/dL (8.4-10.2); Carbon Dioxide 30 mmol/L (22-29); Chloride 106 mmol/L (96-108); Cholesterol 150 mg/dL (<200); Estimated Glomerular Filt Rate > 60; HDL Cholesterol 43 mg/dL (>40); Potassium 4.1 mmol/L (3.3-5.1); Sodium 143 mmol/L (135-145); Triglycerides 179 mg/dL (<150)
[2024-10-03 13:34] LABS: Microalbum/Creatinine Ratio Ur 30.7 ug/mg cr (<30)
== END 2024-10-03 10:56 | disposition home or self-care (01) ==
LOC: HO.HMGCLDS 10:55
PROVIDERS: PCP Internal Medicine; Visit Provider Internal Medicine
DX: I10 Essential (primary) hypertension (principal); M85.80 Other specified disorders of bone density and structure, unspecified site; E78.5 Hyperlipidemia, unspecified; E11.9 Type 2 diabetes mellitus without complications
CPT/HCPCS: 36415; 80048; 80061; 82043; 82306; 82570; 84450; 84460

== ENCOUNTER 2024-10-09 13:59 | Outpatient (AMB) | payer MEDICARE, SELFPAY ==
--- OUTSIDE RECORDS SUMMARY | 2024-10-09 14:03 | XMS_ITS | Patient Health Record ---
Author Organization [facility] Address [address] [facility] [address] [facility] [address] [place] [id number] Care Team Providers Care Robotics Application Engineer Name Role Phone Ángel Schrader [phone] Reason For Referral No Information Plan Of Treatment No Information
--- NOTE | 2024-10-09 14:04 | A.OFFPC_ITS ---
Vital Signs 10/09/24 14:05 Height 5 ft 1 in Weight 196 lb BMI 37.0 BP 122/70 Blood Pressure Location Lt brachial Position Sitting Respiration 16 Pulse 54 Pulse Source Pulse Oximeter Temp 98.1 F Temp Source Oral Pulse Oximetry (%) 96 Oxygen Delivery Method Room Air Intake Visit Reasons: 6m follow up lipids, dm, htn - see comments Intake Note: Pt is here to follow up on lipids,dm and htn. Windows Mobile Developer Required: No Accompanied by: Self / Same As Patient Allergies latex Allergy (Unknown, Verified 10/11/24 03:14) unknown Medication List - Last Reconciled 10/11/24 by Chloe Hutchison MD amlodipine 5 mg PO .QPM with supper atenolol 100 mg PO DAILY blood sugar diagnostic (OneTouch Verio test strips) As directed: test once a day before breakfast or supper blood-glucose meter (OneTouch Verio Meter) As directed calcium carbonate (Calcium 600) 600 mg PO DAILY clotrimazole-betamethasone 1-0.05 % 1 appl topical BID 10 days Contour Next Meter (blood-glucose meter) Check fasting glucose once a day before meal NS Contour Next Test Strips (blood sugar diagnostic) Check fasting glucose once a day before meal NS fluoxetine 10 mg PO QAM hydroxyzine HCl 25 mg PO DAILY PRN lancets As directed: one day before breakfast or supper lancets (Comfort EZ Lancets) Check fasting glucose once a day before meal lisinopril 10 mg PO DAILY metformin 500 mg PO BID multivitamin 1 tab PO DAILY oxybutynin chloride ER 10 mg PO DAILY simvastatin 40 mg PO BEDTIME Tobacco use date assessed: 10/09/24 Fall risk assessment: No Falls in past year Last assessed Fall Risk: 10/09/24 Dental Screening Dental Screen Date: 10/09/24 Did you have a dental visit in the last 12 months?: Yes Did you have a dental problem in the last 6 months where you did not have access to dental care?: No Was dental information given to patient?: Patient has dentist HPI 6m follow up lipids, dm, htn - see comments HPI Details 73 year-old lady here today for follow-u p on her hypertension, diabetes mellitus , urinary stress incontinence, depression with anxiety, and dyslipidemia. She has been compliant with taking her medications, has been trying to follow recommended diet and walks for regular exercise. Feels well, with no complaints at present time. Patient requests as needed prescription for her glucometer, as her previous freestyle was not covered by insurance. [facility] Medical History (Updated 10/11/24 @ 03:19 by Chloe Hutchison MD) Diabetes mellitus, without long-term current use of insulin Osteopenia of neck of left femur Osteopenia Breast cancer screening by mammogram Eczema of both hands Essential hypertension Depression with anxiety Mixed stress and urge urinary incontinence Essential hypertension Dyslipidemia Surgical History Cataracts, bilateral History of eye surgery Family History Father Lung cancer HTN (hypertension) Diabetes mellitus Mother HTN (hypertension) Brother No problems noted. Sister No problems noted. Son No problems noted. Daughter No problems noted. Daughter No problems noted. Social History Housing: House Alcohol intake: current Patient Tobacco Use Status: Former Tobacco user e-Cigarette/Vaping Use: Never Used service: No Current occupational status: disabled Cognitive needs: No Hearing needs: No Vision needs: Yes Questionnaire PHQ-9 Over the last 2 weeks, how often have you been bothered by any of the following problems? 1. Little interest or pleasure in doing things: not at all 2. Feeling down, depressed, or hopeless: not at all 3. Trouble falling or staying asleep, or sleeping too much: not at all 4. Feeling tired or having little energy: not at all 5. Poor appetite or overeating: not at all 6. Feeling bad about yourself - or that you are a failure or have let yourself or your family down: not at all 7. Trouble concentrating on things, such as reading the newspaper or watching television: not at all 8. Moving or speaking so slowly that other people could have noticed. Or the opposite - being so fidgety or restless that you have been moving around a lot more than usual: not at all 9. Thoughts that you would be better off or of hurting yourself in some way: not at all Total score: 0 Depression Screening Interpretation: Negative Depression Screening Done: Yes 19908 - PHQ-9 Billing: Yes Source: Developed by Drs. Ángel Robles, Natalee Varghese, Aneudy Smith and colleagues, with an educational dejuan from [employer]. Thrive Questionnaire Date Thrive assessed: 12/19/23 BIGG-7 AMB Questionnaire BIGG-7 Date BIGG - 7 assessed: 10/09/24 Feeling nervous, anxious, or on edge: 0 = Not at all Not being able to stop or control worryin = Not at all Worrying too much about different things: 0 = Not at all Trouble relaxin = Not at all Being so restless that it is hard to sit still: 0 = Not at all Becoming easily annoyed or irritable: 0 = Not at all Feeling afraid as if something awful might happen: 0 = Not at all Total BIGG-7 score (0-4 normal; 5-9 mild; 10-14 moderate; 15-21 severe): 0 Source: Developed by Drs. Ángel Robles, Natalee Varghese, Aneudy Smith and colleagues, with an educational dejuan from [employer]. BIGG-7 Assessment Billing BIGG-7 Assessment Tool: BIGG-7 Assessment 19903 Review of Systems Const Denies body aches, Denies fatigue, Denies headache(s) and Denies weakness Eyes Details: sees Dr Knowles at [facility], up-to-date with retinopathy screening Denies change in vision ENT Details: Dental prophylaxis every 6 months Denies dizziness, Denies headache(s) and Denies nasal discharge Card Denies chest pain, Denies lightheadedness, Denies palpitations and Denies dyspnea Resp Denies chest congestion, Denies cough, Denies dyspnea and Denies wheezing GI Denies abdominal pain, Denies change in bowel habits and Denies heartburn Denies urinary frequency, Denies dysuria and Denies urinary urgency Musc Reports no additional complaints Skin/Breast Denies lesions Neuro Denies dizziness, Denies headache(s) and Denies weakness Psych Reports no additional complaints Endo Denies fatigue, Denies polydipsia, Denies polyuria and Denies palpitations Apolinar/Lymph Reports no additional complaints Aller/Immun Denies seasonal rhinorrhea and Denies wheezing Physical exam (Primary Care) Vital Signs: Last Vital Signs Temp 98.1 F 10/09/24 14:05 Pulse 54 10/09/24 14:05 Resp 16 10/09/24 14:05 BP 122/70 10/09/24 14:05 Pulse Ox 96 10/09/24 14:05 Oxygen Delivery Method Room Air 10/09/24 14:05 Care Plan Goal for BP management: Vital signs reviewed and stable. BMI result Body Mass Index 37.0 Tobacco/Smoking Status: Tobacco use Status Tobacco use date assessed 10/09/24 10/09/24 14:14 Patient Tobacco Use Status Former Tobacco user 10/09/24 14:06 e-Cigarette/Vaping Use Never Used 10/09/24 14:06 PHQ-9: PHQ-9 Score PHQ-9: Total score 0 10/11/24 03:14 Depression Screening Interpretation: Negative Thrive Assessment: Date of Thrive Assessment Date Thrive assessed 12/19/23 10/09/24 14:06 Const General: comfortable and no acute distress Nutritional Appearance: obese Orientation/consciousness: patient oriented x3 HENMT Head: Yes atraumatic Ears: TM's normal bilaterally and EAC's normal General nose exam: Normal external nose present Face and sinus: Yes face symmetric Mouth: Normal oral and palatal mucosa present and moist mucous membranes Eyes General: appearance normal, both eyes and all related structures Neck Neck: Yes full ROM, Yes no lymphadenopathy and Yes supple Thyroid: Thyroid normal Resp Auscultation: clear to auscultation bilaterally Cardio Rate: regular rate Rhythm: regular rhythm Heart sounds: S1 normal heart sound present and S2 normal heart sound present GI Palpation (GI): Soft to palpation, nontender and no guarding Auscultation: normal bowel sounds Neuro General: patient oriented x3, gait normal, moves all extremities, Normal light touch and pain sensation, no focal motor deficits and CN's II-XI intact bilaterally Extrem General: Yes full ROM, Yes no joint enlargement, Yes no pedal edema and Yes normal gait Psych Appearance: grossly normal Mental Status: mental status grossly normal Speech and movement: Normal speech and movement present Affect: normal affect Results AMB Hemoglobin A1c AMB Hemoglobin A1c 6.7 % Last Edit by Albertina Holly MA on 10/09/24 14:58 Results Reviewed Results Reviewed: Laboratory Last Values Hgb A1c (Clinic) 6.7 % (4.0-6.0) H 10/09/24 14:55 Name: Alicia Zhang Age/Sex: 73/F : 1950 Unit#: [id number] Attend Dr: Chloe Hutchison MD Re10/03/24 Status: DEP REF [id number] Disch: SPEC : [id number] ANTWON: 10/03/24 STATUS: COMP REQ : [id number] RECD: 10/03/24-[address]: Chloe Hutchison MD COMP: 10/03/24 ENTERED: 10/03/[address]: ORDERED: Met Prof Fast, AST, ALT, Lipid Panel, Vitamin D 25-OH Test Result Flag Reference Sodium 143 135-145 mmol/L Potassium 4.1 3.3-5.1 mmol/L CL 106 96-108 mmol/L CO2 30 H 22-29 mmol/L Gap 11 L 12-20 BUN 17 H 9-16 mg/dL Creat 0.84 0.5-1.4 mg/dL eGFR > 60 Chronic Kidney Disease: Estimated GFR < 60 mL/min/1.73m2 Severe Kidney Disease: Estimated GFR < 15 mL/min/1.73m2 FBS 118 H 60-99 mg/dL A fasting glucose from 100-125 mg/dl is considered impaired (pre-diabetes). CA 9.4 8.4-10.2 mg/dL AST (GOT) 27 5-31 U/L ALT (GPT) 24 0-31 U/L Triglyceride 179 H <150 mg/dL Desirable Triglyceride: less than 150 mg/dL Borderline High Triglyceride 150-199 mg/dL High Triglyceride: 200-499 mg/dL Very High Triglyceride: greater than or equal to 5OO mg/dL Cholesterol 150 <200 mg/dL Desirable Cholesterol: less than 200 mg/dL Borderline High Cholesterol: 200-239 mg/dL High Cholesterol: greater than 239 mg/dL LDL Calculated 72 <100 mg/dL Desirable LDL: less than 100 mg/dL Near Optimal/Above Optimal LDL: 110-129 mg/dL Borderline High LDL: 130-159 mg/dL High LDL: 160-189 mg/dL Very High LDL: greater than or equal to 190 mg/dL HDL 43 >40 mg/dL Desirable HDL: greater than 40 mg/dL Note: This HDL assay may give artificially low results in patients with liver disease. Vitamin D 25-OH 51.6 >30 ng/mL Health Based Reference Values* < 20 ng/mL Deficient 20-30 ng/mL Insufficient > 30 ng/mL Sufficient Coding Level of Care Code Est Pt Level 4 (43909) Diagnoses Type 2 diabetes mellitus without complication, without long-term current use of insulin E11.9 Diabetes mellitus type: type 2 Diabetes mellitus complication status: without complication Essential hypertension I10 Dyslipidemia E78.5 Depression with anxiety F41.8 Mixed stress and urge urinary incontinence N39.46 Additional Codes BIGG-7 Assessment Billing - BIGG-7 Assessment Tool: BIGG-7 Assessment 87174 ([id number]) PHQ-9 - 12415 - PHQ-9 Billing: Yes ([id number]) Assessment & Plan Assessment & Plan (1) Diabetes mellitus, without long-term current use of insulin: Code(s): E11.9 - Type 2 diabetes mellitus without complications Category: Medical Qualifiers: Diabetes mellitus type: type 2 Diabetes mellitus complication status: without complication Qualified Code(s): E11.9 - Type 2 diabetes mellitus without complications Plan: Recent hemoglobin A1c is at 6.7%. Continued on metformin 500 mg 1 tablet twice a day and prescription sent for contour glucometer and test strips to check blood sugar levels once a day as directed. Up-to-date with her diabetes retinopathy screening, sees Dr. Knowles (2) Essential hypertension: Code(s): I10 - Essential (primary) hypertension Category: Medical Plan: Blood pressure at goal of less than 130/80. Continue with current medication. Reinforced importance of following a low sodium diet, getting regular exercise, and lowering stress levels. (3) Dyslipidemia: Code(s): E78.5 - Hyperlipidemia, unspecified Category: Medical Plan: Latest fasting lipids are within normal limits, continued on simvastatin 40 mg at bedtime (4) Depression with anxiety: Code(s): F41.8 - Other specified anxiety disorders Category: Medical Plan: Controlled on fluoxetine 10 mg daily and takes hydroxyzine as needed for acute attacks of anxiety (5) Mixed stress and urge urinary incontinence: Code(s): N39.46 - Mixed incontinence Category: Medical Plan: Currently on oxybutynin ER 10 mg once a day Orders: Orders AMB Hemoglobin A1c 10/09/24 Z13.9 - Encounter for screening, unspecified Alanine Aminotransferase 12/17/24 E11.9 - Type 2 diabetes mellitus without complications, E78.5 - Hyperlipidemia, unspecified, I10 - Essential (primary) hypertension Hemoglobin A1c 12/17/24 E11.9 - Type 2 diabetes mellitus without complications, E78.5 - Hyperlipidemia, unspecified, I10 - Essential (primary) hypertension Aspartate Amino Transferase 12/17/24 E11.9 - Type 2 diabetes mellitus without complications, E78.5 - Hyperlipidemia, unspecified, I10 - Essential (primary) hypertension Basic Metabolic Panel Fasting 12/17/24 E11.9 - Type 2 diabetes mellitus without complications, E78.5 - Hyperlipidemia, unspecified, I10 - Essential (primary) hypertension Lipid Panel 12/17/24 E11.9 - Type 2 diabetes mellitus without complications, E78.5 - Hyperlipidemia, unspecified, I10 - Essential (primary) hypertension Medications: New Contour Next Meter (blood-glucose meter) Check fasting glucose once a day before meal 1 ea 0RF NS E11.9 - Type 2 diabetes mellitus without complications Contour Next Test Strips (blood sugar diagnostic) Check fasting glucose once a day before meal 50 ea 6RF NS E11.9 - Type 2 diabetes mellitus without complications lancets (Comfort EZ Lancets) Check fasting glucose once a day before meal 100 ea 5RF E11.9 - Type 2 diabetes mellitus without complications Refilled simvastatin 40 mg PO BEDTIME 90 tabs 4RF metformin 500 mg PO BID 180 tabs 4RF
[2024-10-09 14:05] VITALS: BP 122/70; PULSE 54; RESP 16; TEMP 36.7; O2SAT 96; BMI 37.0
== END 2024-10-09 16:12 | disposition home or self-care (01) ==
LOC: HO.HMCC 13:59
PROVIDERS: PCP Internal Medicine; Visit Provider Internal Medicine
DX: Z13.9 Encounter for screening, unspecified (principal)

== ENCOUNTER → 2024-10-09 13:59 | Outpatient (BNVA) | payer MEDICARE, SELFPAY | PROVIDERS: PCP Internal Medicine; Visit Provider Internal Medicine | DX: E11.9 Type 2 diabetes mellitus without complications (principal); I10 Essential (primary) hypertension; E78.5 Hyperlipidemia, unspecified; F41.8 Other specified anxiety disorders; N39.46 Mixed incontinence | CPT/HCPCS: 83036; 96127; 99212 ==

== ENCOUNTER 2025-01-09 13:23 | Outpatient (REF) | payer MEDICARE, SELFPAY ==
--- OUTSIDE RECORDS SUMMARY | 2025-01-09 15:23 | XMS_ITS | Patient Health Record ---
Author Organization [facility] Address [address] [facility] [address] [place] [id number] Care Team Providers Care Pumper Helper Name Role Phone Ángel Schrader [phone] Reason For Referral No Information Plan Of Treatment No Information
[2025-01-09 17:18] LABS: Alanine Aminotransferase 19 U/L (0-31); Anion Gap 11 (12-20); Aspartate Amino Transferase 25 U/L (5-31); Blood Urea Nitrogen 14 mg/dL (9-16); Calcium 9.2 mg/dL (8.4-10.2); Carbon Dioxide 28 mmol/L (22-29); Chloride 109 mmol/L (96-108); Cholesterol 134 mg/dL (<200); Estimated Glomerular Filt Rate > 60; HDL Cholesterol 49 mg/dL (>40); Potassium 4.3 mmol/L (3.3-5.1); Sodium 144 mmol/L (135-145); Triglycerides 101 mg/dL (<150)
== END 2025-01-09 13:24 | disposition home or self-care (01) ==
LOC: HO.HMGCLDS 13:23
PROVIDERS: PCP Internal Medicine; Visit Provider Internal Medicine
DX: I10 Essential (primary) hypertension (principal); E78.5 Hyperlipidemia, unspecified; E11.9 Type 2 diabetes mellitus without complications
CPT/HCPCS: 36415; 80048; 80061; 83036; 84450; 84460

== ENCOUNTER 2025-01-14 11:13 | Outpatient (AMB) | payer MEDICARE, SELFPAY ==
[2025-01-14 12:01] VITALS: BP 130/80; PULSE 48; RESP 16; TEMP 36.4; O2SAT 96; BMI 36.8
--- NOTE | 2025-01-14 12:01 | MHC.PC.OV ---
Vital Signs 01/14/25 12:01 Height 5 ft 1 in Weight 195 lb BMI 36.8 BP 130/80 Blood Pressure Location Lt brachial Position Sitting Respiration 16 Pulse 48 L Pulse Source Pulse Oximeter Temp 97.5 F Temp Source Oral Pulse Oximetry (%) 96 Oxygen Delivery Method Room Air Intake Visit Reasons: Annual PE - see comments Intake Note: Pt is here today for her PE Office Services Representative Required: No Allergies latex Allergy (Unknown, Verified 01/14/25 12:16) unknown Medication List - Last Reconciled 01/14/25 by Chloe Hutchison MD amlodipine 5 mg PO .QPM with supper atenolol 100 mg PO DAILY blood sugar diagnostic (OneTouch Verio test strips) As directed: test once a day before breakfast or supper blood-glucose meter (OneTouch Verio Meter) As directed calcium carbonate (Calcium 600) 600 mg PO DAILY clotrimazole-betamethasone 1-0.05 % 1 appl topical BID 10 days Contour Next Meter (blood-glucose meter) Check fasting glucose once a day before meal NS Contour Next Test Strips (blood sugar diagnostic) Check fasting glucose once a day before meal NS fluoxetine 10 mg PO QAM hydroxyzine HCl 25 mg PO DAILY PRN lancets As directed: one day before breakfast or supper lancets (Comfort EZ Lancets) Check fasting glucose once a day before meal lisinopril 10 mg PO DAILY metformin 500 mg PO BID multivitamin 1 tab PO DAILY oxybutynin chloride ER 10 mg PO DAILY simvastatin 40 mg PO BEDTIME Tobacco use date assessed: 10/09/24 Fall risk assessment: 1 Fall in past year Last assessed Fall Risk: 01/14/25 Dental Screening Dental Screen Date: 01/14/25 Did you have a dental visit in the last 12 months?: Yes Did you have a dental problem in the last 6 months where you did not have access to dental care?: No Was dental information given to patient?: Patient has dentist HPI Annual PE - see comments HPI Details 74 year-old lady here today for follow-up on her hypertension, diabetes mellitus , urinary stress incontinence, depression with anxiety, and dyslipidemia. Has been feeling well, compliant with her medications and his active. Up-to-date with her screening mammogram and bone density scan done February 2024, the latter showing osteopenia in multiple sites. No longer gets screening colonoscopies , all her previous ones were negative. Latest fasting labs showed hemoglobin at 6.1% and fasting lipids normal. Up-to-date with her diabetes eye screening, sees Dr. Knowles, no retinopathy seen. Depression and anxiety controlled on fluoxetine 10 mg daily. Urinary incontinence controlled with oxybutynin 10 mg daily [facility] Medical History (Updated 01/14/25 @ 13:16 by Chloe Hutchison MD) Diabetes mellitus, without long-term current use of insulin Osteopenia of neck of left femur Breast cancer screening by mammogram Eczema of both hands Essential hypertension Depression with anxiety Mixed stress and urge urinary incontinence Essential hypertension Dyslipidemia Surgical History Cataracts, bilateral History of eye surgery Family History Father Lung cancer HTN (hypertension) Diabetes mellitus Mother HTN (hypertension) Brother No problems noted. Sister No problems noted. Son No problems noted. Daughter No problems noted. Daughter No problems noted. Social History Housing: House Alcohol intake: current Patient Tobacco Use Status: Former Tobacco user e-Cigarette/Vaping Use: Never Used service: No Current occupational status: disabled Cognitive needs: No Hearing needs: No Vision needs: Yes Questionnaire PHQ-9 Over the last 2 weeks, how often have you been bothered by any of the following problems? 1. Little interest or pleasure in doing things: not at all 2. Feeling down, depressed, or hopeless: not at all 3. Trouble falling or staying asleep, or sleeping too much: not at all 4. Feeling tired or having little energy: not at all 5. Poor appetite or overeating: not at all 6. Feeling bad about yourself - or that you are a failure or have let yourself or your family down: not at all 7. Trouble concentrating on things, such as reading the newspaper or watching television: not at all 8. Moving or speaking so slowly that other people could have noticed. Or the opposite - being so fidgety or restless that you have been moving around a lot more than usual: not at all 9. Thoughts that you would be better off or of hurting yourself in some way: not at all Total score: 0 Depression Screening Interpretation: Negative Depression Screening Done: Yes Source: Developed by Drs. Ángel Robles, Natalee Varghese, Aneudy Smith and colleagues, with an educational dejuan from [employer]. Thrive Questionnaire Date Thrive assessed: 12/19/23 What is your living situation today?: I choose not to answer this question Within the past 12 months, did the food you bought not last and you didn't have the money to get more?: I choose not to answer this question Within the past 12 months, did you worry whether your food would run out before you got money to buy more?: I choose not to answer this question Do you have trouble paying for medicines?: I choose not to answer this question Do you have trouble getting transportation to medical appointments?: I choose not to answer this question Do you have trouble paying your heating and electricity bill?: I choose not to answer this question Do you have trouble taking care of your child, family member or friend?: I choose not to answer this question Do you have trouble with day-to-day activities such as bathing, preparing meals, shopping, managing finances, etc.?: I choose not to answer this question Are you currently unemployed and looking for a job?: I choose not to answer this question Are you interested in more education?: I choose not to answer this question THRIVE Score: 0 AUDIT C Alcohol Use Questionnaire (AUDIT-C) 1. How often do you have a drink containing alcohol?: Never Total Score: 0 Score Reviewed/Action Taken: Yes BIGG-7 AMB Questionnaire BIGG-7 Date BIGG - 7 assessed: 10/09/24 Feeling nervous, anxious, or on edge: 0 = Not at all Not being able to stop or control worryin = Not at all Worrying too much about different things: 0 = Not at all Trouble relaxin = Not at all Being so restless that it is hard to sit still: 0 = Not at all Becoming easily annoyed or irritable: 0 = Not at all Feeling afraid as if something awful might happen: 0 = Not at all Total BIGG-7 score (0-4 normal; 5-9 mild; 10-14 moderate; 15-21 severe): 0 Source: Developed by Drs. Ángel Robles, Natalee Varghese, Aneudy Smith and colleagues, with an educational dejuan from [employer]. Review of Systems Const Denies body aches, Denies fatigue, Denies headache(s) and Denies weakness Eyes Details: sees Dr Knowles at [facility], up-to-date with retinopathy screening Denies change in vision ENT Details: Dental prophylaxis every 6 months Denies dizziness, Denies headache(s) and Denies nasal discharge Card Denies chest pain, Denies lightheadedness, Denies palpitations and Denies dyspnea Resp Denies chest congestion, Denies cough, Denies dyspnea and Denies wheezing GI Denies abdominal pain, Denies change in bowel habits and Denies heartburn Denies urinary frequency, Denies dysuria and Denies urinary urgency Musc Reports no additional complaints Skin/Breast Denies lesions Neuro Denies dizziness, Denies headache(s) and Denies weakness Psych Reports no additional complaints Endo Denies fatigue, Denies polydipsia, Denies polyuria and Denies palpitations Apolinar/Lymph Reports no additional complaints Aller/Immun Denies seasonal rhinorrhea and Denies wheezing Physical exam (Primary Care) Vital Signs: Last Vital Signs Temp 97.5 F 01/14/25 12:01 Pulse 48 L 01/14/25 12:01 Resp 16 01/14/25 12:01 BP 130/80 01/14/25 12:01 Pulse Ox 96 01/14/25 12:01 Oxygen Delivery Method Room Air 01/14/25 12:01 Care Plan Goal for BP management: Vital signs reviewed and stable. BMI result Body Mass Index 36.8 Tobacco/Smoking Status: Tobacco use Status Tobacco use date assessed 10/09/24 01/14/25 12:01 Patient Tobacco Use Status Former Tobacco user 01/14/25 12:01 e-Cigarette/Vaping Use Never Used 01/14/25 12:01 PHQ-9: PHQ-9 Score PHQ-9: Total score 0 01/14/25 12:06 Depression Screening Interpretation: Negative Thrive Assessment: Date of Thrive Assessment Date Thrive assessed 12/19/23 01/14/25 12:01 Const General: comfortable and no acute distress Nutritional Appearance: obese Orientation/consciousness: patient oriented x3 HENMT Head: Yes atraumatic Ears: TM's normal bilaterally and EAC's normal General nose exam: Normal external nose present Face and sinus: Yes face symmetric Mouth: Normal oral and palatal mucosa present and moist mucous membranes Eyes General: appearance normal, both eyes and all related structures Neck Neck: Yes full ROM, Yes no lymphadenopathy and Yes supple Thyroid: Thyroid normal Chest Breast/axilla palpation: normal palpation of the breasts Resp Auscultation: clear to auscultation bilaterally Cardio Rate: regular rate Rhythm: regular rhythm Heart sounds: S1 normal heart sound present and S2 normal heart sound present GI Palpation (GI): Soft to palpation, nontender and no guarding Auscultation: normal bowel sounds General: Yes no CVA tenderness Back/Spine/Pelvis Back: no CVA tenderness and No back tenderness Skin General skin exam: no rashes or lesions noted Neuro General: patient oriented x3, gait normal, moves all extremities, Normal light touch and pain sensation, no focal motor deficits and CN's II-XI intact bilaterally Extrem General: Yes full ROM, Yes no joint enlargement, Yes no pedal edema and Yes normal gait Psych Appearance: grossly normal Mental Status: mental status grossly normal Speech and movement: Normal speech and movement present Affect: normal affect Results Reviewed Results Reviewed: Name: Alicia Zhang Age/Sex: 74/F : 1950 Unit#: [id number] Attend Dr: Chloe Hutchison MD Re01/09/25 Status: DEP REF Location: [facility] Disch: SPEC : [id number] ANTWON: 01/09/25 STATUS: COMP REQ : [id number] RECD: 01/09/[address]: Chloe Hutchison MD COMP: 01/09/25 ENTERED: 01/09/[address]: ORDERED: Met Prof Fast, AST, ALT, Lipid Panel Test Result Flag Reference Sodium 144 135-145 mmol/L Potassium 4.3 3.3-5.1 mmol/L CL 109 H 96-108 mmol/L CO2 28 22-29 mmol/L Gap 11 L 12-20 BUN 14 9-16 mg/dL Creat 0.72 0.5-1.4 mg/dL eGFR > 60 Chronic Kidney Disease: Estimated GFR < 60 mL/min/1.73m2 Severe Kidney Disease: Estimated GFR < 15 mL/min/1.73m2 FBS 119 H 60-99 mg/dL A fasting glucose from 100-125 mg/dl is considered impaired (pre-diabetes). CA 9.2 8.4-10.2 mg/dL AST (GOT) 25 5-31 U/L ALT (GPT) 19 0-31 U/L Triglyceride 101 <150 mg/dL Desirable Triglyceride: less than 150 mg/dL Borderline High Triglyceride 150-199 mg/dL High Triglyceride: 200-499 mg/dL Very High Triglyceride: greater than or equal to 5OO mg/dL Cholesterol 134 <200 mg/dL Desirable Cholesterol: less than 200 mg/dL Borderline High Cholesterol: 200-239 mg/dL High Cholesterol: greater than 239 mg/dL LDL Calculated 65 <100 mg/dL Desirable LDL: less than 100 mg/dL Near Optimal/Above Optimal LDL: 110-129 mg/dL Borderline High LDL: 130-159 mg/dL High LDL: 160-189 mg/dL Very High LDL: greater than or equal to 190 mg/dL HDL 49 >40 mg/dL Desirable HDL: greater than 40 mg/dL Note: This HDL assay may give artificially low results in patients with liver disease. Laboratory Tests 10/03/24 01/09/25 11:15 13:48 Estimat Average Glucose 128 Hemoglobin A1c % 6.1 H Microalb/Creat Ratio 30.7 H Coding Level of Care Code Est Pt Prev Care >65y(66552) Diagnoses Annual visit for general adult medical examination with abnormal findings Z00.01 Depression with anxiety F41.8 Essential hypertension I10 Dyslipidemia E78.5 Type 2 diabetes mellitus without complication, without long-term current use of insulin E11.9 Diabetes mellitus type: type 2 Diabetes mellitus complication status: without complication Mixed stress and urge urinary incontinence N39.46 Osteopenia of neck of left femur M85.852 Advance directive discussed with patient Z71.89 Assessment & Plan Assessment & Plan (1) Annual visit for general adult medical examination with abnormal findings: Code(s): Z00.01 - Encounter for general adult medical examination with abnormal findings Plan: Results of recent fasting lab discussed with patient. Recommended dental visit every 6 months and regular eye exams, , sees Dr. Knowles every year, currently up-to-date. Take adequate calcium in diet and vitamin-D 3 at 2000 IU per cap once a day, in addition to weight-bearing exercises to help maintain good muscle tone and weight control. Instructed to do self-breast exam, and continue get yearly mammogram,, last 1 done February 2024 together with a bone density scan which showed presence of osteopenia in left femoral neck. No history of fracture. Patient no longer gets colon cancer screenings, last one showed results within normal limits. (2) Depression with anxiety: Code(s): F41.8 - Other specified anxiety disorders Category: Medical Plan: Stable and controlled on fluoxetine 10 mg daily (3) Essential hypertension: Code(s): I10 - Essential (primary) hypertension Category: Medical Plan: Blood pressure at goal of less than 130/80. Continue lisinopril 10 mg daily and atenolol 100 mg once a. Reinforced importance of following a low sodium diet, getting regular exercise, and lowering stress levels. (4) Dyslipidemia: Code(s): E78.5 - Hyperlipidemia, unspecified Category: Medical Plan: Latest fasting lipids are within normal limits, continued on simvastatin 40 mg at bedtime (5) Diabetes mellitus, without long-term current use of insulin: Code(s): E11.9 - Type 2 diabetes mellitus without complications Category: Medical Qualifiers: Diabetes mellitus type: type 2 Diabetes mellitus complication status: without complication Qualified Code(s): E11.9 - Type 2 diabetes mellitus without complications Plan: Diabetes mellitus better controlled now with a hemoglobin A1c at 6.1%. Continue metformin 500 mg 1 tablet twice a day with meals. Up-to-date with her diabetes retinopathy screening, sees Dr. De Knowles (6) Mixed stress and urge urinary incontinence: Code(s): N39.46 - Mixed incontinence Category: Medical Plan: Controlled on oxybutynin chloride ER 10 mg daily (7) Osteopenia of neck of left femur: Comment: 02/2024 Code(s): M85.852 - Other specified disorders of bone density and structure, left thigh Category: Medical Plan: Stressed importance of doing regular weight-bearing exercise, calcium and vitamin-D supplements. Repeat another bone density scan in 2025 (8) Advance directive discussed with patient: Code(s): Z71.89 - Other specified counseling Plan: Initiated the conversation about Advanced Directives. Advanced Directives help patients prepare for current and future decisions about their medical treatment and place of care. Discussed with patient that it is a process where a patients current condition and prognosis are reviewed, their wishes for information regarding their illness are elicited, and likely medical dilemmas are presented and options discussed. Healthcare proxy form completed today. The form can be amended as needed, reviewed yearly and make changes as needed
--- OUTSIDE RECORDS SUMMARY | 2025-01-14 14:15 | XMS_ITS | Patient Health Record ---
Author Organization [facility] Address [address] [place] [id number] Care Team Providers Care Refiner Operator Name Role Phone Ángel Schrader [phone] Reason For Referral No Information Plan Of Treatment No Information
== END 2025-01-14 12:31 | disposition home or self-care (01) ==
LOC: HO.HMCC 11:14
PROVIDERS: PCP Internal Medicine; Visit Provider Internal Medicine
DX: Z00.01 Encounter for general adult medical examination with abnormal findings (principal); E11.69 Type 2 diabetes mellitus with other specified complication; F41.8 Other specified anxiety disorders; I10 Essential (primary) hypertension; E78.5 Hyperlipidemia, unspecified; N39.46 Mixed incontinence; M85.852 Other specified disorders of bone density and structure, left thigh; Z71.89 Other specified counseling

== ENCOUNTER → 2025-01-14 11:13 | Outpatient (BNVA) | payer MEDICARE, SELFPAY | PROVIDERS: PCP Internal Medicine; Visit Provider Internal Medicine | DX: Z00.01 Encounter for general adult medical examination with abnormal findings (principal); F41.8 Other specified anxiety disorders; I10 Essential (primary) hypertension; E78.5 Hyperlipidemia, unspecified; E11.9 Type 2 diabetes mellitus without complications; N39.46 Mixed incontinence; M85.852 Other specified disorders of bone density and structure, left thigh | CPT/HCPCS: 99397 ==